=== PATIENT | female | born 1945 | race American Indian/Alaskan Native ===

== ENCOUNTER 2018-06-15 21:52 | Inpatient (IN) | payer MEDICARE, OTHER ==
[~2018-06-15] VITALS: Ht 160 cm; Wt 48.2 kg
[~2018-06-15 21:52] MED LIST: ACET-3068 PO; ASPI-41 PO; BIMA2.5D4 EACHEYE; CA C1TAB91 PO; COL100C PO; FAMO-115 PO; LOP25T PO; MAGN-49 PO; MULT1TAB PO
[2018-06-15] MEDS ORDERED: HYDR12.5 PO (22:08)
[2018-06-15] MEDS ORDERED: CETI-102 PO (22:08)
[2018-06-15 22:28] LABS: BASOPHILS % (AUTO) 0.5 % (0-1); EOSINOPHILS # (AUTO) 0.2 X10'3 (0-0.9); EOSINOPHILS % (AUTO) 2.1 % (0-6); HEMATOCRIT 35.5 % (35.0-45.0); HEMOGLOBIN 12.1 g/dl (12.0-16.0); LYMPHOCYTES # (AUTO) 1.7 X10'3 (1.1-4.8); LYMPHOCYTES % (AUTO) 19.9 % (21-51); MEAN CORPUSCULAR HEMOGLOBIN 30.2 PG (27.0-31.0); MEAN CORPUSCULAR HGB CONC 34.1 % (33.0-36.5); MEAN CORPUSCULAR VOLUME 88.6 FL (78-98); MONOCYTES # (AUTO) 0.6 X10'3 (0-0.9); MONOCYTES % (AUTO) 7.7 % (2-12); NEUTROPHILS # (AUTO) 5.9 X10'3 (1.8-7.7); NEUTROPHILS % (AUTO) 69.8 % (42-75); PLATELET COUNT 337 X10'3 (140-440); RED BLOOD COUNT 4.01 X10'6 (4.20-5.60); WHITE BLOOD COUNT 8.5 X10'3 (4.5-11.0)
[2018-06-15 22:40] LABS: PARTIAL THROMBOPLASTIN TIME 25 SECONDS (22-32); PROTHROMBIN TIME 10.7 SECONDS (9.0-12.0)
[2018-06-15 22:43] LABS: ALANINE AMINOTRANSFERASE 14 U/L (12-78); ALBUMIN 2.9 G/DL (3.4-5.0); ALBUMIN/GLOBULIN RATIO 0.9 (1.1-1.5); ALKALINE PHOSPHATASE 69 IU/L (46-116); ANION GAP 8 (8-16); ASPARTATE AMINO TRANSFERASE 17 U/L (10-37); BILIRUBIN,TOTAL 1.1 MG/DL (0.1-1.0); BLOOD UREA NITROGEN 10 MG/DL (7-18); BUN/CREATININE RATIO 17.9 (6.6-38.0); CALCIUM 7.7 MG/DL (8.5-10.1); CHLORIDE 102 MMOL/L (99-107); CREATININE 0.56 MG/DL (0.40-0.90); GLUCOSE 103 MG/DL (70-104); POTASSIUM 3.4 MMOL/L (3.5-5.1); SODIUM 137 MMOL/L (135-145); TOTAL CARBON DIOXIDE 27.4 MMOL/L (24-32); TOTAL PROTEIN 6.2 G/DL (6.4-8.2); eGFR > 90 ML/MIN
[2018-06-15 22:49] LABS: LIPASE 71 U/L (73-393); MAGNESIUM 1.5 MG/DL (1.5-2.4)
[2018-06-15] MEDS ORDERED: mag hydrox/Alum hydrox/simeth 30ml oral suspension PO PRN (23:50)
[2018-06-15] MEDS ORDERED: acetaminophen 325mg tablet PO PRN (23:50)
[2018-06-15] MEDS ORDERED: magnesium hydroxide 30ml (MOM) UD suspension PO PRN (23:50)
[2018-06-15] MEDS ORDERED: ondansetron/PF 4mg/2ml inj IV PRN (23:50)
[2018-06-16] VITALS (8 sets, daily range): BP systolic 89–146; BP diastolic 47–82
[2018-06-16 06:11] LABS: BASOPHILS # (AUTO) 0.1 X10'3 (0-0.2); BASOPHILS % (AUTO) 1.4 % (0-1); EOSINOPHILS # (AUTO) 0.3 X10'3 (0-0.9); EOSINOPHILS % (AUTO) 3.6 % (0-6); HEMATOCRIT 40.4 % (35.0-45.0); HEMOGLOBIN 13.7 g/dl (12.0-16.0); LYMPHOCYTES # (AUTO) 2.4 X10'3 (1.1-4.8); LYMPHOCYTES % (AUTO) 25.6 % (21-51); MEAN CORPUSCULAR VOLUME 88.2 FL (78-98); MEAN PLATELET VOLUME 7.7 FL (7.4-10.4); MONOCYTES # (AUTO) 0.7 X10'3 (0-0.9); NEUTROPHILS % (AUTO) 62.4 % (42-75); PLATELET COUNT 398 X10'3 (140-440); RED BLOOD COUNT 4.58 X10'6 (4.20-5.60); WHITE BLOOD COUNT 9.6 X10'3 (4.5-11.0)
[2018-06-16 06:49] LABS: ALANINE AMINOTRANSFERASE 18 U/L (12-78); ALBUMIN 3.5 G/DL (3.4-5.0); ALBUMIN/GLOBULIN RATIO 0.9 (1.1-1.5); ALKALINE PHOSPHATASE 79 IU/L (46-116); ANION GAP 12 (8-16); ASPARTATE AMINO TRANSFERASE 22 U/L (10-37); BILIRUBIN,TOTAL 1.7 MG/DL (0.1-1.0); BLOOD UREA NITROGEN 12 MG/DL (7-18); BUN/CREATININE RATIO 19.4 (6.6-38.0); CALCIUM 9.1 MG/DL (8.5-10.1); CHLORIDE 98 MMOL/L (99-107); CREATININE 0.62 MG/DL (0.40-0.90); GLUCOSE 98 MG/DL (70-104); POTASSIUM 3.6 MMOL/L (3.5-5.1); SODIUM 135 MMOL/L (135-145); TOTAL CARBON DIOXIDE 24.7 MMOL/L (24-32); TOTAL PROTEIN 7.4 G/DL (6.4-8.2); eGFR > 90 ML/MIN
[2018-06-16] MEDS: metoprolol tartrate 12.5mg (1/2 tablet) PO SCH ×2 (08:00→20:56)
[2018-06-16] MEDS: cetirizine 10mg tablet PO SCH (08:38)
[2018-06-16] MEDS: aspirin 325mg tablet, delayed-release (Ecotrin) PO SCH (08:38)
[2018-06-16] MEDS: heparin, porcine 5000 units/ml vial SQ SCH ×2 (08:40→20:00)
[2018-06-16] MEDS ORDERED: nitroGLYCERIN 0.4mg SUBLingual tab SL PRN (09:25)
[2018-06-16] MEDS ORDERED: aminophylline 250mg/10ml inj. IV PRN (09:25)
[2018-06-16] MEDS ORDERED: regadenoson 0.4mg/5ml syringe IV ONE (09:25)
[2018-06-16] MEDS ORDERED: metoprolol tartrate 1mg/ml inj IV PRN (09:25)
[2018-06-16 10:35] LABS: D-DIMER 0.66 MG/L FEU (0-0.50)
[2018-06-16] MEDS ORDERED: pneumococcal 23-VAL P-sac vacc 25 mcg/0.5ml vial IMVAC ONE (15:45)
[2018-06-16] MEDS ORDERED: iohexol 350MG/ML 100ml bottle IV ONE ×2 (16:10→19:59)
[2018-06-16] MEDS: latanoprost 0.005% 2.5ml ophthalmic drops EACHEYE SCH (20:58)
[2018-06-17] VITALS (20 sets, daily range): BP systolic 70–141; BP diastolic 40–77
[2018-06-17 05:05] LABS: BASOPHILS # (AUTO) 0.1 X10'3 (0-0.2); BASOPHILS % (AUTO) 0.7 % (0-1); EOSINOPHILS # (AUTO) 0.4 X10'3 (0-0.9); EOSINOPHILS % (AUTO) 3.9 % (0-6); HEMATOCRIT 40.9 % (35.0-45.0); HEMOGLOBIN 13.7 g/dl (12.0-16.0); LYMPHOCYTES # (AUTO) 3.2 X10'3 (1.1-4.8); LYMPHOCYTES % (AUTO) 32.2 % (21-51); MEAN CORPUSCULAR HEMOGLOBIN 29.9 PG (27.0-31.0); MEAN CORPUSCULAR HGB CONC 33.5 % (33.0-36.5); MEAN CORPUSCULAR VOLUME 89.4 FL (78-98); MEAN PLATELET VOLUME 7.7 FL (7.4-10.4); MONOCYTES # (AUTO) 0.7 X10'3 (0-0.9); MONOCYTES % (AUTO) 7.5 % (2-12); NEUTROPHILS # (AUTO) 5.5 X10'3 (1.8-7.7); NEUTROPHILS % (AUTO) 55.7 % (42-75); PLATELET COUNT 350 X10'3 (140-440); RED BLOOD COUNT 4.58 X10'6 (4.20-5.60); RED CELL DISTRIBUTION WIDTH 13.9 % (11.5-14.5); WHITE BLOOD COUNT 9.9 X10'3 (4.5-11.0)
[2018-06-17 05:35] LABS: ALANINE AMINOTRANSFERASE 14 U/L (12-78); ALBUMIN 3.3 G/DL (3.4-5.0); ALBUMIN/GLOBULIN RATIO 0.9 (1.1-1.5); ALKALINE PHOSPHATASE 70 IU/L (46-116); ANION GAP 10 (8-16); ASPARTATE AMINO TRANSFERASE 17 U/L (10-37); BILIRUBIN,TOTAL 1.2 MG/DL (0.1-1.0); BLOOD UREA NITROGEN 27 MG/DL (7-18); BUN/CREATININE RATIO 29.3 (6.6-38.0); CALCIUM 8.8 MG/DL (8.5-10.1); CHLORIDE 100 MMOL/L (99-107); CREATININE 0.92 MG/DL (0.40-0.90); GLUCOSE 93 MG/DL (70-104); POTASSIUM 3.5 MMOL/L (3.5-5.1); SODIUM 137 MMOL/L (135-145); TOTAL CARBON DIOXIDE 27.5 MMOL/L (24-32); eGFR 60 ML/MIN
[2018-06-17] MEDS: aspirin 325mg tablet, delayed-release (Ecotrin) PO SCH (07:07)
[2018-06-17] MEDS: cetirizine 10mg tablet PO SCH (07:08)
[2018-06-17] MEDS: heparin, porcine 5000 units/ml vial SQ SCH (07:08)
[2018-06-17] MEDS: metoprolol tartrate 12.5mg (1/2 tablet) PO SCH ×2 (08:00→23:39)
[2018-06-17] MEDS ORDERED: regadenoson 0.4mg/5ml syringe IV ONE (09:31)
[2018-06-17] MEDS ORDERED: aminophylline inj. 0 ML IV ONE ×2 (09:31→10:30)
[2018-06-17] MEDS ORDERED: nitroGLYCERIN 0.4mg SUBLingual tab SL PRN (14:30)
[2018-06-17] MEDS: Potassium Cl inj 20 MEQ in normal saline 1000ml 990 ML IV SCH (14:30)
[2018-06-17 14:31] LABS: CLARITY,URINE CLOUDY (Clear); COLOR,URINE YELLOW (Yellow); GLUCOSE, URINE NEGATIVE (Neg); KETONES,URINE NEGATIVE (Neg); LEUKOCYTE ESTERASE ,URINE SMALL (Neg); NITRITES, URINE POSITIVE (Neg); OCCULT BLOOD,URINE TRACE-INTACT (Neg); PROTEIN,URINE NEGATIVE (Neg); UROBILINOGEN,URINE 0.2 E.U/dL (0.2-1.0)
[2018-06-17 14:36] LABS: UA COLLECTION TYPE CLN CATCH MIDSTREAM
[2018-06-17 14:46] LABS: BACTERIA,URINE 4+ /HPF (Neg); MUCUS STRANDS FEW /LPF (Neg); RBC,URINE 0-2 /HPF (0-2); SQUAMOUS EPITHELIAL CELL,UR FEW /LPF (FEW); WBC,URINE 50-100 /HPF (0-4)
[2018-06-17 14:47] LABS: WBC CLUMPS,URINE MANY /HPF (NEGATIVE)
[2018-06-17 15:13] LABS: PARTIAL THROMBOPLASTIN TIME 23 SECONDS (22-32)
[2018-06-17] MEDS: levoFLOXACIN 500mg tablet PO SCH (15:40)
[2018-06-17] MEDS ORDERED: LIDOcaine 1% (10mg/ml)w/preservative injection 20ml MDV ONE (15:54)
[2018-06-17] MEDS ORDERED: iohexol 350MG/ML 100ml bottle IV ONE (15:54)
[2018-06-17] MEDS ORDERED: OXAZEpam 15mg capsule PO PRN (17:20)
[2018-06-17] MEDS ORDERED: HYDROcodone/acetaminophen 5mg/325mg tablet PO PRN (17:20)
[2018-06-17] MEDS ORDERED: proCHLORperazine 10 MG/2 ml inj IV PRN (17:20)
[2018-06-17] MEDS ORDERED: HYDROcodone/acetaminophen 10/325mg tab PO PRN (17:20)
[2018-06-17] MEDS: latanoprost 0.005% 2.5ml ophthalmic drops EACHEYE SCH (21:00)
[2018-06-18 03:00] VITALS: BP 95/53
[2018-06-18] MEDS: Potassium Cl inj 20 MEQ in normal saline 1000ml 990 ML IV SCH (03:00)
[2018-06-18 06:00] VITALS: BP 109/70
[2018-06-18 07:21] LABS: ALANINE AMINOTRANSFERASE 18 U/L (12-78); ALBUMIN/GLOBULIN RATIO 0.9 (1.1-1.5); ALKALINE PHOSPHATASE 75 IU/L (46-116); ANION GAP 9 (8-16); ASPARTATE AMINO TRANSFERASE 19 U/L (10-37); BILIRUBIN,TOTAL 0.9 MG/DL (0.1-1.0); BLOOD UREA NITROGEN 20 MG/DL (7-18); BUN/CREATININE RATIO 28.6 (6.6-38.0); CALCIUM 8.2 MG/DL (8.5-10.1); CHLORIDE 104 MMOL/L (99-107); CHOLESTEROL 199 MG/DL (0-200); GLUCOSE 89 MG/DL (70-104); HDL CHOLESTEROL 99 MG/DL (35-60); LDL CHOLESTEROL 99 MG/DL (50-100); POTASSIUM 3.9 MMOL/L (3.5-5.1); SODIUM 139 MMOL/L (135-145); TOTAL CARBON DIOXIDE 25.7 MMOL/L (24-32); TOTAL PROTEIN 6.5 G/DL (6.4-8.2); TRIGLYCERIDES 66 MG/DL (20-135); eGFR 82 ML/MIN
[2018-06-18] MEDS: aspirin 325mg tablet, delayed-release (Ecotrin) PO SCH (08:59)
[2018-06-18] MEDS: metoprolol tartrate 12.5mg (1/2 tablet) PO SCH (08:59)
[2018-06-18] MEDS: cetirizine 10mg tablet PO SCH (08:59)
[2018-06-18] MEDS ORDERED: METO25TA6 PO (10:06)
[2018-06-18] MEDS ORDERED: LEVO500T89 PO (10:06)
[2018-06-18 11:00] VITALS: BP 102/52
[2018-06-18] MEDS: levoFLOXACIN 500mg tablet PO SCH (11:20)
== END 2018-06-18 14:52 | disposition home or self-care (01) | DRG 287 ==
LOC: ER 21:53 → ED HOLD 23:50 → PCU 3S 06-16 01:41
PROVIDERS: ADMIT Internal Medicine; ATTEND Internal Medicine
PROC: 3E0234Z Introduction of Serum, Toxoid and Vaccine into Muscle, Percutaneous Approach (ICD-10-PCS; 2018-06-16)
PROC: B32T1ZZ Computerized Tomography (CT Scan) of Left Pulmonary Artery using Low Osmolar Contrast (ICD-10-PCS; 2018-06-16)
PROC: B3201ZZ Computerized Tomography (CT Scan) of Thoracic Aorta using Low Osmolar Contrast (ICD-10-PCS; 2018-06-16)
PROC: B32S1ZZ Computerized Tomography (CT Scan) of Right Pulmonary Artery using Low Osmolar Contrast (ICD-10-PCS; 2018-06-16)
PROC: 4A023N7 Measurement of Cardiac Sampling and Pressure, Left Heart, Percutaneous Approach (ICD-10-PCS; principal; 2018-06-17)
PROC: B2111ZZ Fluoroscopy of Multiple Coronary Arteries using Low Osmolar Contrast (ICD-10-PCS; 2018-06-17)
PROC: 4A02XM4 Measurement of Cardiac Total Activity, External Approach (ICD-10-PCS; 2018-06-17)
PROC: 3E033HZ Introduction of Radioactive Substance into Peripheral Vein, Percutaneous Approach (ICD-10-PCS; 2018-06-17)
DX: I16.0 Hypertensive urgency (principal); N39.0 Urinary tract infection, site not specified; J20.9 Acute bronchitis, unspecified; H40.9 Unspecified glaucoma; M19.90 Unspecified osteoarthritis, unspecified site; H54.40 Blindness, one eye, unspecified eye; I25.10 Atherosclerotic heart disease of native coronary artery without angina pectoris; I10 Essential (primary) hypertension; I95.9 Hypotension, unspecified; Z23 Encounter for immunization; Z90.11 Acquired absence of right breast and nipple; Z95.2 Presence of prosthetic heart valve; Z88.2 Allergy status to sulfonamides; Z79.899 Other long term (current) drug therapy; Z79.82 Long term (current) use of aspirin; Z85.3 Personal history of malignant neoplasm of breast; Z87.891 Personal history of nicotine dependence; Z86.73 Personal history of transient ischemic attack (TIA), and cerebral infarction without residual deficits; Z82.3 Family history of stroke; Z82.49 Family history of ischemic heart disease and other diseases of the circulatory system
CPT/HCPCS: 36415; 71045; 71275; 78451; 80053; 80061; 81001; 83690; 83735; 83880; 84443; 84484; 85025; 85379; 85610; 85730; 87077; 87088; 87186; 90732; 93005; 93017; 93306; 93454; 93880; 99285; A4620; A6257; A9500; C1769; J0280; J1644; J2001; J3480; J7030; Q9967